=== PATIENT | female | born 1995 | race African-American/Black ===

== ENCOUNTER 2022-11-18 16:40 | Emergency (ER) | payer BC, MEDICAID, SELFPAY ==
[2022-11-18] VITALS (17 sets, daily range): BP systolic 126–130; BP diastolic 80–108; PULSE 77–109; RESP 12–21; TEMP 36.6; O2SAT 97–100
--- NOTE | ~2022-11-18 | XR_ITS ---
EXAMINATION: XR chest 1V portable INDICATION: Asthma, chest pressure TECHNIQUE: Portable AP chest at 1854 hours COMPARISON: None available FINDINGS: The lungs are free of acute opacities. No pleural effusion or pneumothorax. The cardiomedia stinal silhouette is normal. IMPRESSION: 1. No acute cardiopulmonary abnormality. Reviewed, dictated and finalized at location F.
--- NOTE | 2022-11-18 16:52 | ECG_ITS ---
Measurements Intervals [place] Rate: 97 P: 61 ND: 147 QRS: 70 QRSD: 94 T: 28 QT: 340 QTc: 434 Interpretive Statements SINUS RHYTHM POSSIBLE LEFT ATRIAL ENLARGEMENT [-0.1mV P WAVE IN V1/V2] POSSIBLE RIGHT VENTRICULAR CONDUCTION DELAY [RSR (QR) IN V1/V2] NONSPECIFIC ST & T-WAVE ABNORMALITY NO PREVIOUS ECG AVAILABLE FOR COMPARISON Electronically Signed On 11-19-2022 12:35:24 CDT by Porfirio Howard M.D.
[2022-11-18 17:10] LABS: Basophils Percent Auto 0.4 % (0.2-1.2); Eosinophils Absolute Auto 0.7 K/mm3 (0-0.3); Eosinophils Percent Auto 8.8 % (0-4.4); Hematocrit 34.8 % (37.0-47.0); Immature Granulocyte Absolute 0.02 K/mm3 (0.00-0.031); Immature Granulocyte Percent A 0.3 % (0-0.5); Lymphocytes Absolute Auto 2.78 K/mm3 (0.9-3.2); Lymphocytes Percent Auto 37.8 % (18.3-44.2); Mean Corpuscular HGB Conc 31.6 g/dl (32-36); Mean Corpuscular Hemoglobin 25.2 pg (26-34); Mean Corpuscular Volume 79.6 fl (80-100); Mean Platelet Volume 10.5 fl (7.4-10.4); Monocytes Absolute Auto 0.3 K/mm3 (0.1-0.6); Monocytes Percent Auto 3.9 % (2.6-8.5); Neutrophils Absolute Auto 3.6 K/mm3 (1.3-6.7); Neutrophils Percent Auto 48.8 % (45.5-73.1); Platelet Count Result 366 k/mm3 (150-375); Red Blood Count 4.37 M/mm3 (4.2-5.4); Red Cell Distribution Width 14.6 % (11.5-14.5); White Blood Count 7.4 K/mm3 (4.5-10.0)
[2022-11-18 17:22] LABS: INR 0.9; Partial Thromboplastin Time 30.8 SECONDS (22.3-36.8); Prothrombin Time 12.7 Seconds (11.1-14.7)
[2022-11-18 17:23] LABS: Alanine Aminotransferase 28 U/L (6-35); Alkaline Phosphatase 66 U/L (38-126); Anion Gap 2 mmol/L (8-16); Aspartate Amino Transferase 26 U/L (14-36); Bilirubin,Total 0.2 mg/dL (0.2-1.3); Blood Urea Nitrogen 8 mg/dL (7-17); Calcium 8.7 mg/dL (8.4-10.2); Carbon Dioxide 29 mmol/L (22-30); Chloride 108 mmol/L (98-107); Estimated CRCL calculation 123 ml/min; Estimated Glomerular Filt Rate > 60; Glucose 106 mg/dL (65-110); Lipase 164 U/L (23-300); Potassium 3.7 mmol/L (3.4-5.0); Sodium 139 mmol/L (137-145)
[2022-11-18 17:35] LABS: Troponin I < 0.012 ng/mL (0.000-0.034)
[2022-11-18] MEDS: IPRATROPIUM BR 0.02% INH SOLN 0.5 MG/2.5 ML VIAL 1.5 MG INHALATION (17:42)
[2022-11-18] MEDS: ALBUTEROL SULFATE NEB 2.5 MG/3 ML INH 10 MG INHALATION (17:42)
--- NOTE | 2022-11-18 17:55 | ED.ASTHMA ---
HPI - Asthma General Chief Complaint: Asthma <KATHERINE Guzman Last Filed: 11/19/22 02:45> Stated Complaint: asthma <KATHERINE Guzman Last Filed: 11/19/22 02:45> Time Seen by Provider: 11/18/22 17:07 <KATHERINE Guzman Last Filed: 11/19/22 02:45> Source: patient <KATHERINE Guzman Last Filed: 11/19/22 02:45> Mode of arrival: ambulatory <KATHERINE Guzman Last Filed: 11/19/22 02:45> Limitations: no limitations <KATHERINE Guzman Last Filed: 11/19/22 02:45> History of Present Illness HPI Narrative: This is a 27-year-old female who presents to the ED with chief complaint of asthma-like symptoms x today. Patient states that she has a history of asthma and usually goes to the emergency department to get her symptoms under control. She states she has an albuterol puffer at home that on occasion does not provide relief. She reports wheezing, tightness, shortness of breath. Patient denies fevers, chills, cough, chest pain, abdominal pain, nausea, vomiting. Denies any further complaints <Lenny Liao PA-C - Last Filed: 11/19/22 02:45> Related Data Allergies/Adverse Reactions: Allergies Allergy/AdvReac Type Severity Reaction Status Date / Time No Known Allergies Allergy Verified 11/18/22 17:37 <KATHERINE Guzman Last Filed: 11/19/22 02:45> Review of Systems Review of Systems: CONSTITUTIONAL: Denies fever, chills, or sweats. EYES: Denies visual changes, redness, or discharge. ENT: Denies rhinorrhea, congestion, sore throat, or otalgia. CARDIOVASCULAR: Denies chest pain, palpitations, or edema. RESPIRATORY: See GASTROINTESTINAL: Denies abdominal pain, nausea, vomiting, or diarrhea. GENITOURINARY: Denies dysuria or hematuria. SKIN: Denies rash or itching. MUSCULOSKELETAL: Denies back pain, joint pain, or myalgia. NEUROLOGIC: Denies headache, numbness, dizziness, or weakness. PSYCHIATRIC: Denies anxiety or depression. <Lenny Liao PA-C - Last Filed: 11/19/22 02:45> Exam Narrative: GENERAL: Well-appearing, well-nourished, and in no acute distress. HEAD: Normocephalic, atraumatic. EYES: PERRLA and EOMI. ENT: Nares clear, no rhinorrhea or epistaxis. Mucous membranes moist. Oropharynx without tonsillar hypertrophy exudate or other lesions. NECK: Supple. No adenopathy or masses. CHEST: No respiratory distress. No accessory muscle use. Inspiratory and expiratory wheezes throughout all lung partida. No rales or rhonchi present. Sats 97% on room air. She is able to speak in full sentences. HEART: Regular rate and rhythm. No murmur heard. Normal peripheral pulses. ABDOMEN: Soft, nontender, nondistended, normal active bowel sounds. MSK: Normal range of motion. No edema. SKIN: Warm, dry, no rash. NEURO: Alert and oriented x3. No focal deficits. PSYCH: Normal mood and affect. <Lenny Liao PA-C - Last Filed: 11/19/22 02:45> Course Course Emergency Course: Reevaluation: Patient is feeling much better. Her wheezes have improved on my exam as well <Lenny Liao PA-C - Last Filed: 11/19/22 02:45> EDUCATIONAL ADMINISTRATOR/PA Physician Supervision This is a was performed by both a physician and an APC. I performed all aspects of the MDM as documented w/ the following additions: 27-year-old presenting with uncomplicated asthma. Improved with treatment. Given primary care follow-up.All questions answered. Patient in agreement w/ disposition. <Leonardo Mendoza MD - Last Filed: 11/26/22 17:58> Vital Signs Vital signs: Vital Signs Temperature 97.9 F 11/18/22 16:48 Pulse Rate 98 11/18/22 16:48 Respiratory Rate 16 11/18/22 16:48 Blood Pressure 130/80 11/18/22 16:48 Pulse Oximetry 97 11/18/22 16:48 Oxygen Delivery Room Air 11/18/22 16:48 Temperature 97.9 F 11/18/22 16:48 Pulse Rate 98 11/18/22 20:00 Respiratory Rate 18 11/18/22 20:00 Blood Pressure 126/108 H 11/18/22 20:07 Pulse Oximetry 99 11/18/22
[2022-11-18] MEDS: predniSONE 20 MG TABLET 40 MG PO (20:05)
== END 2022-11-18 20:13 | disposition home or self-care (01) ==
PROVIDERS: Preventive Medicine Aerospace Medicine; Emergency Provider Physician Assistant
DX: J45.909 Unspecified asthma, uncomplicated (principal); R94.31 Abnormal electrocardiogram [ECG] [EKG]
CPT/HCPCS: 36415; 71045; 80053; 83690; 84484; 85025; 85610; 85730; 93005; 94640; 99284; J7512

== ENCOUNTER 2024-11-17 08:20 | Emergency (ER) | payer BC, SELFPAY ==
[2024-11-17] VITALS (7 sets, daily range): BP systolic 127–139; BP diastolic 80–96; PULSE 69–111; RESP 18; TEMP 36.9; O2SAT 97–98
--- NOTE | ~2024-11-17 | XR_ITS ---
EXAMINATION: XR chest 2V DATE: 11/17/2024 09:46 INDICATION: Cough, nausea and vomiting TECHNIQUE: PA and lateral views of the chest were obtained. COMPARISON: Chest radiograph dated 11/18/2022 FINDINGS: The lungs are clear with no focal airspace opacities, pulmonary edema, pleural effusion or pneumothor ax. The cardiomediastinal silhouette is normal. Visualized bones and soft tissues are unremarkable. IMPRESSION: 1. No acute cardiopulmonary disease. Reviewed, dictated and finalized at location A.
--- OUTSIDE RECORDS SUMMARY | 2024-11-17 08:22 | XMS_ITS | Referral Summary ---
Author Organization [facility] at the Medical Office Building Address [address] [place] [address] Care Team Providers Care Sap Security Consultant Name Role Phone No, Physician Primary Care Provider [phone] Allergies No known active allergies Social History Tobacco Use Types Packs/Day Years Used Date Smoking Tobacco: Never Assessed Personal Safety Answer Date Recorded Have you ever been in or are you currently in a harmful physical or emotional relationship or is someone making you feel afraid or unsafe? 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 Gender Identity Not on file Sexual Orientation Not on file Last Filed Vital Signs Vital Sign Reading Time Taken Comments Blood Pressure 134/96 04/09/2024 10:00 PM CDT Pulse 75 04/09/2024 10:00 PM CDT Temperature 36.8 C (98.3 F) 04/09/2024 5:30 PM CDT Respiratory Rate 18 04/09/2024 10:00 PM CDT Oxygen Saturation 100% 04/09/2024 10:00 PM CDT Inhaled Oxygen Concentration - - Weight 97.8 kg (215 lb 9.8 oz) 04/09/2024 5:30 P M CDT Height 167.6 cm (5' 6) 04/09/2024 5:30 PM CDT Body Mass Index 34.8 04/09/2024 5:30 PM CDT Plan of Treatment Not on file Care Teams Sap Security Consultant Relationship Specialty Start Date End Date No, Physician PCP - General 06/11/20
--- OUTSIDE RECORDS SUMMARY | 2024-11-17 08:22 | XMS_ITS | Clinical Summary ---
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 Gender Identity Not on file Sexual Orientation [...] 04/09/2024 5:30 PM CDT Plan of Treatment Health Maintenance Due Date Last Done Comments Cervical Cancer Screening 1996 Depression Screening 1996 Hepatitis C Screening 1996 DTaP/Tdap/Td Vaccine (1 - Tdap) 2007 Varicella Vaccines (1 of 2 - 13+ 2-dose series) 2009 Hepatitis B Screening 2014 Regular Well Visit/Exam 18-64 2014 Covid-19 Vaccine (3 - 2023-2 5 season) 2024 11/15/2020, 10/18/2020 Influenza Vaccine (Season Ended) 2025 04/16/2022 HPV Vaccines Aged Out No longer eligi ble based on patient's age to complete this topic Pneumococcal vaccine <65 Aged Out No longer eligible based on patient's age to complete this topic Care Teams Global Position System Technician Relationship Specialty Start Date End Date No, Physician PCP - General 06/11/20
--- OUTSIDE RECORDS SUMMARY | 2024-11-17 08:22 | XMS_ITS | Clinical Summary ---
Author Organization [facility] Address [address] [place] [address] Care Team Providers Care Lamination Builder Name Role Phone Manjula Grayson MD Primary Care Provider [phone] Source Comments [facility],non-owned Affiliates and Associated Physician Practices is amultiple site organization consisting of ambulatory clinics and hospital sitesin [place], [place], [place] and [place]. This disclosure is being madepursuant to the Care Everywhere program and may not contain all information available regarding this patient. Last updated 18.[facility] Allergies No known active allergies Medications * Be aware that medications may not be up to date on this document. Alwaysverify current medications with the patient. albuterol HFA (VENTOLIN HFA) 108 (90 BASE) MCG/ACT inhalerIndication s:Wheezing,Mild intermittent asthma with acute exacerbation (HCC) Inhale 2 Puffs by mouth every 6 hours as needed for Shortness of Breath, Wheezing or Cough 1 Inhaler 6 Active Social History Tobacco Use Types Packs/Day Years Used Date Smoking Tobacco: Never Comments Unknown Sex and Gender Information Value Date Recorded Sex Assigned at Not on file Legal Sex Female 2:04 PM INBOUND CALL CENTER AGENT Gender Identity Not on file Sexual Orientation Not on file Last Filed Vital Signs Vital Sign Reading Time Taken Comments Blood Pressure 118/74 05/10/2016 3:54 PM INBOUND CALL CENTER AGENT Pulse 85 05/10/2016 3:54 PM INBOUND CALL CENTER AGENT Temperature 37.1 C (98.7 F) 05/10/2016 3:54 PM INBOUND CALL CENTER AGENT Respiratory Rate 20 05/10/2016 3:54 PM INBOUND CALL CENTER AGENT Oxygen Saturation 95% 05/10/2016 3:54 PM INBOUND CALL CENTER AGENT Inhaled Oxygen Concentration - - Weight 77.6 kg (171 lb) 05/10/2016 3:54 PM INBOUND CALL CENTER AGENT Height 167.6 cm (5' 6) 05/10/2016 3:54 PM INBOUND CALL CENTER AGENT Body Mass Index 27.6 05/10/2016 3:54 PM INBOUND CALL CENTER AGENT Plan of Treatment Health Maintenance Due Date Last Done Comments HIV SCREENING 2011 HEPATITIS C SCREENING 03/24/2014 DTAP/TDAP/TD VACCINES (1 - Tdap) 2015 HEPATITIS B VACCINE (1 of 3 - 19+ 3-dose series) 2015 COVID-19 VACCINE (1 - 2023-2 5 season) 2024 DEPRESSION SCREENING 06/13/2024 INFLUENZA VACCINE (Season Ended) 2025 ZOSTER VACCINE (1 of 2) 2046 HIB VACCINE Aged Out No longer eligi ble based on patient's age to complete this topic HPV VACCINE Aged Out No longer eligi ble based on patient's age to complete this topic MENINGOCOCCAL (Group B) VACC INE SHARED DECISION-MAKING Aged Out No longer eligibl e based on patient's age to complete this topic MENINGOCOCCAL GROUPS A/C/Y/W VACCINE Aged Out No longer eligible b ased on patient's age to complete this topic PNEUMOCOCCAL VACCINE Aged Out No long er eligible based on patient's age to complete this topic Insurance [employer] Care Teams Lamination Builder Relationship Specialty Start Date End Date Manjula Grayson MD [address] [place] [address] PCP - General Pediatrics 05/10/16
--- OUTSIDE RECORDS SUMMARY | 2024-11-17 08:48 | XMS_ITS | Clinical Summary ---
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
--- OUTSIDE RECORDS SUMMARY | 2024-11-17 08:48 | XMS_ITS | Referral Summary ---
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
--- OUTSIDE RECORDS SUMMARY | 2024-11-17 08:48 | XMS_ITS | Clinical Summary ---
Author Organization [facility] Address [address] [place] [address] Care Team Providers Care Tunnel Elastic Operator Zigzag Name Role Phone Manjula Grayson MD Primary Care Provider [phone] Source Comments [facility],non-owned Affiliates and Associated Physician Practices is amultiple site organization consisting of ambulatory clinics and hospital sitesin [place], [place], [place] and [place]. This disclosure is being madepursuant to the Care Everywhere program and may not contain all information available regarding this patient. Last updated 18.[facility] Allergies No known active allergies Medications * [...] on file Legal Sex Female 2:04 PM PATIENT RELATIONS SPECIALIST Gender Identity Not on file Sexual Orientation Not on file Last Filed Vital Signs Vital Sign Reading Time Taken Comments Blood Pressure 118/74 05/10/2016 3:54 PM PATIENT RELATIONS SPECIALIST Pulse 85 05/10/2016 3:54 PM PATIENT RELATIONS SPECIALIST Temperature 37.1 C (98.7 F) 05/10/2016 3:54 PM PATIENT RELATIONS SPECIALIST Respiratory Rate 20 05/10/2016 3:54 PM PATIENT RELATIONS SPECIALIST Oxygen Saturation 95% 05/10/2016 3:54 PM PATIENT RELATIONS SPECIALIST Inhaled Oxygen Concentration - - Weight 77.6 kg (171 lb) 05/10/2016 3:54 PM PATIENT RELATIONS SPECIALIST Height 167.6 cm (5' 6) 05/10/2016 3:54 PM PATIENT RELATIONS SPECIALIST Body Mass Index 27.6 05/10/2016 3:54 PM PATIENT RELATIONS SPECIALIST Plan of Treatment Health Maintenance Due Date [...] patient's age to complete this topic Insurance [employer] Care Teams Tunnel Elastic Operator Zigzag Relationship Specialty Start Date End Date Manjula Grayson MD [address] [place] [address] PCP - General Pediatrics 05/10/16
[2024-11-17] MEDS: IPRATROPIUM 0.5 MG/ALBUTEROL SULFATE 2.5 MG AMPUL.NEB 3 ML INHALATION (09:13)
[2024-11-17 09:25] LABS: Alanine Aminotransferase 25 U/L (6-35); Albumin Level 3.7 g/dL (3.5-5.1); Alkaline Phosphatase 83 U/L (38-126); Anion Gap 6 mmol/L (4-12); Aspartate Amino Transferase 27 U/L (14-36); Bilirubin,Total 0.2 mg/dL (0.2-1.3); Blood Urea Nitrogen 9 mg/dL (7-17); Calcium 9.2 mg/dL (8.4-10.2); Carbon Dioxide 27 mmol/L (22-30); Chloride 104 mmol/L (98-107); Estimated CRCL calculation 111 ml/min; Estimated Glomerular Filt Rate > 60; Glucose 91 mg/dL (65-110); Lipase 101 U/L (23-300); Potassium 4.1 mmol/L (3.4-5.0); Sodium 137 mmol/L (137-145); Total Protein 6.8 g/dL (6.3-8.2)
[2024-11-17 09:29] LABS: Basophils Percent Auto 0.8 % (0.2-1.2); Eosinophils Absolute Auto 0.2 K/mm3 (0-0.3); Eosinophils Percent Auto 3.6 % (0-4.4); Hematocrit 38.1 % (37.0-47.0); Hemoglobin 11.9 g/dL (12.0-15.0); Immature Granulocyte Absolute 0.02 K/mm3 (0.00-0.031); Immature Granulocyte Percent A 0.4 % (0-0.5); Lymphocytes Percent Auto 26.4 % (18.3-44.2); Mean Corpuscular HGB Conc 31.2 g/dl (32-36); Mean Corpuscular Hemoglobin 24.8 pg (26-34); Mean Corpuscular Volume 79.5 fl (80-100); Mean Platelet Volume 10.3 fl (7.4-10.4); Monocytes Absolute Auto 0.6 K/mm3 (0.1-0.6); Monocytes Percent Auto 10.4 % (2.6-8.5); Neutrophils Absolute Auto 3.1 K/mm3 (1.3-6.7); Neutrophils Percent Auto 58.4 % (45.5-73.1); Platelet Count Result 392 k/mm3 (150-375); Red Blood Count 4.79 M/mm3 (4.2-5.4); Red Cell Distribution Width 14.7 % (11.5-14.5); White Blood Count 5.3 K/mm3 (4.5-10.0)
[2024-11-17 09:41] LABS: BEDSIDEPREGUCG Negative (Negative)
[2024-11-17 09:52] LABS: Influenza A QL RT-PCR Negative (Negative); Influenza B QL RT-PCR Negative (Negative); RSV RNA, RT-PCR Negative (Negative); SARS-CoV-2 RNA PCR Negative (Negative)
[2024-11-17 10:01] LABS: Add Urine Microscopic? YES; Appearance Urine Cloudy (Clear); Bacteria Urine 2+ /hpf; Bilirubin Urine Negative (Negative); Blood Urine Negative (Negative); Color Urine Yellow (Yellow); Glucose Urine UA Negative (Negative); Ketones Urine Trace mg/dL (Negative); Leukocyte Esterase Ur Negative LEU/UL (Negative); Nitrate Urine Negative (Negative); Non Pathogenic Casts 0-2; Protein Urine 1+ mg/dL (Negative); Specific Grav Ur 1.031 (1.001-1.035); Squamous Epithelial Cell Urine Moderate /hpf (Few); WBC Urine 0-5 /hpf (0-3); pH Urine 6.5 (5.0-9.0)
--- NOTE | 2024-11-17 10:48 | ED.GENADULT ---
HPI - General Adult General Chief complaint: Nausea/Vomiting/Diarrhea Stated complaint: sick for a week Time Seen by Provider: 11/17/24 08:43 History of Present Illness HPI narrative: Patient is a 29-year-old female who presents ER with fatigue as well as nausea vomiting. Ongoing for the last week. Feels better when she takes ibuprofen. No frequent loose stools. No known sick contacts. Has had some mild cough. No chest pain chest pressure. Denies urinary symptoms. Related Data Allergies Allergy/AdvReac Type Severity Reaction Status Date / Time No Known Allergies Allergy Verified 11/18/22 17:37 Review of Systems Review of Systems: All systems reviewed & are unremarkable except as noted in HPI and below Constitutional: Constitutional: Reports no additional constitutional complaints ENT: Reports system reviewed and no additional complaints, except as documented Cardiovascular: Cardiovascular: Reports no additional cardiovascular complaints Respiratory: Respiratory: Reports no additional respiratory complaints Gastrointestinal: Gastrointestinal: Reports no additional gastrointestinal complaints PMFSH Past Medical History Medical History (Updated 11/17/24 @ 10:51 by Andrea Alvarez MD) Healthy female adult Exam Narrative: GENERAL: Well-appearing, well-nourished, and in no acute distress. HEAD: Normocephalic, atraumatic. ENT: Mucous membranes moist. CHEST: Clear to auscultation. No respiratory distress. HEART: Regular rate and rhythm. Normal peripheral pulses. ABDOMEN: Soft, nontender, nondistended. EXTREMITIES: Normal range of motion. No edema. SKIN: Warm, dry, no rash. NEURO: Alert and oriented x3. PSYCH: Normal mood and affect. Course Course Emergency Course: Unremarkable evaluation. Bacteria noted in urine. Contaminated sample with moderate squamous epithelial cells and no symptoms. Discharge with antiemetics. Vital Signs Vital signs: Vital Signs Temperature 98.4 F 11/17/24 08:33 Pulse Rate 98 11/17/24 08:33 Respiratory Rate 18 11/17/24 08:33 Blood Pressure 132/96 H 11/17/24 08:33 Pulse Oximetry 98 11/17/24 08:33 Oxygen Delivery Room Air 11/17/24 08:33 Temperature 98.4 F 11/17/24 08:33 Pulse Rate 101 H 11/17/24 10:22 Respiratory Rate 18 11/17/24 09:23 Blood Pressure 127/80 11/17/24 10:22 Pulse Oximetry 98 11/17/24 08:33 Oxygen Delivery Room Air 11/17/24 08:33 Medical Decision Making Vital Signs Vital Signs: Vital Signs Temperature 98.4 F 11/17/24 08:33 Pulse Rate 98 11/17/24 08:33 Respiratory Rate 18 11/17/24 08:33 Blood Pressure 132/96 H 11/17/24 08:33 Pulse Oximetry 98 11/17/24 08:33 Oxygen Delivery Room Air 11/17/24 08:33 Temperature 98.4 F 11/17/24 08:33 Pulse Rate 101 H 11/17/24 10:22 Respiratory Rate 18 11/17/24 09:23 Blood Pressure 127/80 11/17/24 10:22 Pulse Oximetry 98 11/17/24 08:33 Oxygen Delivery Room Air 11/17/24 08:33 Lab Data 11/17/24 09:02 11/17/24 09:02 Labs: Lab Results 11/17/24 11/17/24 11/17/24 Range/Units 09:02 09:05 09:36 WBC 5.3 (4.5-10.0) K/mm3 RBC 4.79 (4.2-5.4) M/mm3 Hgb 11.9 L (12.0-15.0) g/dL Hct 38.1 (37.0-47.0) % MCV 79.5 L (80-100) fl MCH 24.8 L (26-34) pg MCHC 31.2 L (32-36) g/dl RDW 14.7 H (11.5-14.5) % Plt Count 392 H (150-375) k/mm3 MPV 10.3 (7.4-10.4) fl Immature Gran % (Auto) 0.4 (0-0.5) % Neut % (Auto) 58.4 (45.5-73.1) % Lymph % (Auto) 26.4 (18.3-44.2) % [place] % (Auto) 10.4 H (2.6-8.5) % Eos % (Auto) 3.6 (0-4.4) % Baso % (Auto) 0.8 (0.2-1.2) % Lymph # (Auto) 1.40 (0.9-3.2) K/mm3 [place] # (Auto) 0.6 (0.1-0.6) K/mm3 Eos # (Auto) 0.2 (0-0.3) K/mm3 Baso # (Auto) 0.0 (0.0-0.1) K/mm3 Abs Immat Gran (auto) 0.02 (0.00-0.031) K/mm3 Absolute Neuts (auto) 3.1 (1.3-6.7) K/mm3 Absolute Nucleated RBC 0.000 (0.0-0.012) K/mm3 Nucleated RBC % 0.0 (0.0-0.2) % Sodium 137 (137-145) mmol/L Potassium 4.1 (3.4-5.0) mmol/L Chloride 104 (98-107) mmol/L Carbon Dioxide 27 (22-30) mmol/L Anion Gap 6 (4-12) mmol/L BUN 9 (7-17) mg/dL Creatinine 0.75 (0.7-1.0) mg/dL Estim Creat Clear Calc 111 ml/min Estimated GFR > 60 (59 - ) Glucose 91 (65-110) mg/dL Calcium 9.2 (8.4-10.2) mg/dL Total Bilirubin 0.2 (0.2-1.3) mg/dL AST 27 (14-36) U/L ALT 25 (6-35) U/L Alkaline Phosphatase 83 (38-126) U/L Total Protein 6.8 (6.3-8.2) g/dL Albumin 3.7 (3.5-5.1) g/dL Lipase 101 (23-300) U/L Urine Color Yellow (Yellow) Urine Appearance Cloudy H (Clear) Urine pH 6.5 (5.0-9.0) Ur Specific [place] 1.031 (1.001-1.035) Urine Protein 1+ H (Negative) mg/dL Urine Glucose (UA) Negative (Negative) mg/dL Urine Ketones Trace H (Negative) mg/dL Ur Blood (Man) Negative (Negative) Urine Nitrate Negative (Negative) Urine Bilirubin Negative (Negative) Urine Urobilinogen 1.0 (<2.0) mg/dL Leukocyte Esterase Rfl Negative (Negative) ERNA/UL Urine RBC 3-5 H (0-2) /hpf Urine WBC 0-5 (0-3) /hpf Ur Squamous Epith Cells Moderate (Few) /hpf Urine Bacteria 2+ H /hpf Urine Casts 0-2 POC Urine HCG, Qual (Negative) Influenza A (RT-PCR) Negative (Negative) Influenza B (RT-PCR) Negative (Negative) RSV (RT-PCR) Negative (Negative) SARS-CoV-2 RNA (RT-PCR) Negative (Negative) 11/17/24 Range/Units 09:39 WBC (4.5-10.0) K/mm3 RBC (4.2-5.4) M/mm3 Hgb (12.0-15.0) g/dL Hct (37.0-47.0) % MCV (80-100) fl MCH (26-34) pg MCHC (32-36) g/dl RDW (11.5-14.5) % Plt Count (150-375) k/mm3 MPV (7.4-10.4) fl Immature Gran % (Auto) (0-0.5) % Neut % (Auto) (45.5-73.1) % Lymph % (Auto) (18.3-44.2) % [place] % (Auto) (2.6-8.5) % Eos % (Auto) (0-4.4) % Baso % (Auto) (0.2-1.2) % Lymph # (Auto) (0.9-3.2) K/mm3 [place] # (Auto) (0.1-0.6) K/mm3 Eos # (Auto) (0-0.3) K/mm3 Baso # (Auto) (0.0-0.1) K/mm3 Abs Immat Gran (auto) (0.00-0.031) K/mm3 Absolute Neuts (auto) (1.3-6.7) K/mm3 Absolute Nucleated RBC (0.0-0.012) K/mm3 Nucleated RBC % (0.0-0.2) % Sodium (137-145) mmol/L Potassium (3.4-5.0) mmol/L Chloride (98-107) mmol/L Carbon Dioxide (22-30) mmol/L Anion Gap (4-12) mmol/L BUN (7-17) mg/dL Creatinine (0.7-1.0) mg/dL Estim Creat Clear Calc ml/min Estimated GFR (59 - ) Glucose (65-110) mg/dL Calcium (8.4-10.2) mg/dL Total Bilirubin (0.2-1.3) mg/dL AST (14-36) U/L ALT (6-35) U/L Alkaline Phosphatase (38-126) U/L Total Protein (6.3-8.2) g/dL Albumin (3.5-5.1) g/dL Lipase (23-300) U/L Urine Color (Yellow) Urine Appearance (Clear) Urine pH (5.0-9.0) Ur Specific [place] (1.001-1.035) Urine Protein (Negative) mg/dL Urine Glucose (UA) (Negative) mg/dL Urine Ketones (Negative) mg/dL Ur Blood (Man) (Negative) Urine Nitrate (Negative) Urine Bilirubin (Negative) Urine Urobilinogen (<2.0) mg/dL Leukocyte Esterase Rfl (Negative) ERNA/UL Urine RBC (0-2) /hpf Urine WBC (0-3) /hpf Ur Squamous Epith Cells (Few) /hpf Urine Bacteria /hpf Urine Casts POC Urine HCG, Qual Negative (Negative) Influenza A (RT-PCR) (Negative) Influenza B (RT-PCR) (Negative) RSV (RT-PCR) (Negative) SARS-CoV-2 RNA (RT-PCR) (Negative) Discharge Plan Discharge Clinical Impression: Nausea & vomiting, Viral syndrome Patient Disposition: Still a Patient Condition: Stable Instructions: Acute Nausea and Vomiting (ED) Additional Instructions: Return to the emergency department if you develop severe abdominal pain, severe nausea and vomiting to the point where you are unable to keep down fluids, if you develop chest pain or difficulty breathing, blood in your stool, dizziness or fainting, or if you develop any other new or concerning symptoms as these could be signs of more serious medical illness. Try to stay well hydrated. Patient Language: Chilean Prescriptions: New ondansetron 4 mg tablet,disintegrating 4 mg PO Q6H PRN (Reason: nausea and vomiting) Qty: 10 0RF No Action (DME) nebulizer and compressor Device See Rx Instructions .Route Qty: 1 0RF Rx Instructions: As directed prednisone 50 mg tablet 50 mg PO DAILY 5 Days Qty: 5 0RF Follow-up/Referrals: Porter,Ana A., DO [Physician] - 1 Week PHYSICIAN,STRIPPER LATEX [Primary Care Provider] -
== END 2024-11-17 11:02 | disposition home or self-care (01) ==
PROVIDERS: Emergency Provider Emergency Medicine
DX: B34.9 Viral infection, unspecified (principal); Z20.822 Contact with and (suspected) exposure to COVID-19
CPT/HCPCS: 36415; 71046; 80053; 81001; 81025; 83690; 85025; 87637; 94640; 99283